=== PATIENT | male | born 1980 | race Two or more races ===

== ENCOUNTER 2019-11-28 07:16 | Emergency (ER) | payer SELFPAY ==
[~2019-11-28] VITALS: Ht 152.4 cm; Wt 107.5 kg
[2019-11-28] MEDS ORDERED: SODIUM CHLORIDE 0.9% 1,000 ML IV ONE (07:55)
[2019-11-28] MEDS ORDERED: MECLIZINE HCL 25 MG TAB PO ONE (08:00)
[2019-11-28 08:19] LABS: Basophils # (auto) 0.1 10 ^3/uL (0-0.2); Basophils % (auto) 0.7 % (0.0-2.0); Eosinophils # (auto) 0.2 10 ^3/uL (0-0.8); Eosinophils % (auto) 2.7 % (0.0-7.0); Hemoglobin 16.2 g/dL (13.5-17.5); Lymphocytes # (auto) 2.4 10 ^3/uL (0.4-5.4); Lymphocytes % (auto) 31.1 % (10.0-50.0); Mean Corpuscular Hemoglobin 30.3 pg (28.0-32.0); Mean Corpuscular Hgb Conc. 34.6 g/dL (32.0-36.0); Mean Corpuscular Volume 87.5 fL (80.0-100.0); Monocytes # (auto) 0.5 10 ^3/uL (0-1.3); Monocytes % (auto) 6.8 % (0.0-12.0); Neutrophils # (auto) 4.5 10 ^3/uL (1.6-8.6); Neutrophils % (auto) 58.7 % (37.0-80.0); Nucleated Red Blood Cells % 0.1 %; Platelet Count (auto) 166 10^3/uL (140-450); Red Blood Cells 5.37 10^6/uL (4.5-5.90); Red Cell Distribution Width 12.9 % (11.8-14.3); White Blood Cell 7.7 10^3/uL (4.4-10.8)
[2019-11-28 08:24] LABS: Urine WBC None Seen /hpf (0 - 3)
[2019-11-28 08:30] LABS: Urine Bacteria NONE SEEN /hpf (None Seen); Urine Blood TRACE /uL (Negative); Urine Specific Gravity 1.014 (1.001-1.035)
[2019-11-28 08:56] LABS: Albumin 3.7 g/dL (3.4-5.0); Anion Gap 9 (5-15); Blood Urea Nitrogen 13 mg/dL (7-18); Calcium 8.8 mg/dL (8.5-10.1); Carbon Dioxide 25 mmol/L (21-32); Chloride 107 mmol/L (98-107); Glucose 133 mg/dL (74-106); Magnesium 2.2 mg/dL (1.6-2.6); Potassium 3.8 mmol/L (3.5-5.1); Sodium 141 mmol/L (136-145)
[2019-11-28 09:05] LABS: Alanine Aminotransferase 62 U/L (16-61); Alkaline Phosphatase 71 U/L (45-117); Aspartate Aminotransferase 23 U/L (15-37); BUN/Creatinine Ratio 15.7; Bilirubin, Total 0.8 mg/dL (0.2-1.0); GFR African American 132 mL/min; GFR Non-African American 109 mL/min; Total Protein 7.3 g/dL (6.4-8.2)
[2019-11-28 11:00] VITALS: BP 157/101
== END 2019-11-28 11:32 | disposition home or self-care (01) ==
LOC: ER 07:16
DX: R07.89 Other chest pain (principal); J01.90 Acute sinusitis, unspecified; H81.10 Benign paroxysmal vertigo, unspecified ear; K21.9 Gastro-esophageal reflux disease without esophagitis
CPT/HCPCS: 36415; 71046; 80053; 81001; 83735; 84443; 84484; 85025; 93005; 96360; 96361; 99285; J7030; J8597

== ENCOUNTER 2019-12-29 06:52 | Emergency (ER) | payer MEDICAID ==
[~2019-12-29] VITALS: Ht 154.9 cm; Wt 107.5 kg
[2019-12-29 07:30] VITALS: BP 151/81
== END 2019-12-29 07:52 | disposition home or self-care (01) ==
LOC: ER 06:52
DX: R19.7 Diarrhea, unspecified (principal); H10.31 Unspecified acute conjunctivitis, right eye; K21.9 Gastro-esophageal reflux disease without esophagitis

== ENCOUNTER → 2020-03-20 | Emergency (ER) | payer MEDICAID ==
[~2020-03-20] VITALS: Ht 154.9 cm; Wt 117.9 kg
[~2020-03-20] MED LIST: AZITHROMYCIN 500MG/ 250ML 250 ML IV ONE; KETOROLAC TROMETH 30 MG/ML 1ML VIAL IV ONE; SODIUM CHLORIDE 0.9% 1,000 ML IV ONE; cefTRIAXone 1GM/50ML D5W 50 ML IV ONE
[2020-03-20 08:13] LABS: Basophils # (auto) 0 10 ^3/uL (0-0.2); Basophils % (auto) 0.5 % (0.0-2.0); Eosinophils # (auto) 0.2 10 ^3/uL (0-0.8); Eosinophils % (auto) 2.8 % (0.0-7.0); Hematocrit 46.3 % (41.0-53.0); Lymphocytes # (auto) 3.2 10 ^3/uL (0.4-5.4); Lymphocytes % (auto) 36.3 % (10.0-50.0); Mean Corpuscular Hemoglobin 30.3 pg (28.0-32.0); Mean Corpuscular Hgb Conc. 34.5 g/dL (32.0-36.0); Mean Corpuscular Volume 87.8 fL (80.0-100.0); Monocytes # (auto) 0.6 10 ^3/uL (0-1.3); Monocytes % (auto) 6.4 % (0.0-12.0); Neutrophils # (auto) 4.7 10 ^3/uL (1.6-8.6); Nucleated Red Blood Cells % 0.1 %; Platelet Count (auto) 166 10^3/uL (140-450); Red Blood Cells 5.28 10^6/uL (4.5-5.90); Red Cell Distribution Width 12.9 % (11.8-14.3); White Blood Cell 8.7 10^3/uL (4.4-10.8)
[2020-03-20 08:39] LABS: Albumin 3.7 g/dL (3.4-5.0); Anion Gap 5 (5-15); Blood Urea Nitrogen 17 mg/dL (7-18); Calcium 8.6 mg/dL (8.5-10.1); Carbon Dioxide 26 mmol/L (21-32); Chloride 109 mmol/L (98-107); Glucose 120 mg/dL (74-106); Potassium 4.2 mmol/L (3.5-5.1); Sodium 140 mmol/L (136-145)
[2020-03-20 08:44] LABS: Alanine Aminotransferase 72 U/L (16-61); Alkaline Phosphatase 73 U/L (45-117); Aspartate Aminotransferase 30 U/L (15-37); BUN/Creatinine Ratio 18.7; Bilirubin, Total 1.2 mg/dL (0.2-1.0); GFR African American 119 mL/min; GFR Non-African American 98 mL/min; Total Protein 7.2 g/dL (6.4-8.2)
[2020-03-20 10:35] LABS: Amphetamine Screen, Urine NEGATIVE (NEGATIVE); Barbiturate Scree,Urine NEGATIVE (NEGATIVE); Benzodiazephine Screen, Urine NEGATIVE (NEGATIVE); Cannabinoid Screen, Urine NEGATIVE (NEGATIVE); Cocaine Screen, Urine NEGATIVE (NEGATIVE); Opiate Scree,Urine NEGATIVE (NEGATIVE); Phencyclidine Screen, Urine NEGATIVE (NEGATIVE)
[2020-03-20 10:42] LABS: Urine Bacteria NONE SEEN /hpf (None Seen); Urine Blood Negative /uL (Negative); Urine Specific Gravity 1.019 (1.001-1.035); Urine WBC 2 /hpf (0 - 3)
[2020-03-20 13:00] VITALS: BP 132/78
== END | disposition home or self-care (01) ==
LOC: EDUNIT# 06:21 → ER 06:21
DX: J18.9 Pneumonia, unspecified organism (principal); R10.12 Left upper quadrant pain; E86.0 Dehydration; K21.9 Gastro-esophageal reflux disease without esophagitis; Z87.442 Personal history of urinary calculi; Z20.828 Contact with and (suspected) exposure to other viral communicable diseases
CPT/HCPCS: 36415; 71046; 74176; 80053; 80307; 81001; 84484; 85025; 93005; 96365; 96366; 96368; 96375; 99285; J0456; J0696; J1885; J7030; U0003

== ENCOUNTER 2020-07-17 12:08 | Emergency (ER) | payer MEDICAID ==
[~2020-07-17] VITALS: Ht 154.9 cm; Wt 113.4 kg
[2020-07-17] MEDS ORDERED: ONDANSETRON ODT 4 MG TAB PO ONE ×2 (13:19→13:45)
[2020-07-17 13:49] VITALS: BP 141/92
== END 2020-07-17 13:52 | disposition home or self-care (01) ==
LOC: ER 12:08
DX: J20.9 Acute bronchitis, unspecified (principal); K21.9 Gastro-esophageal reflux disease without esophagitis; Z20.828 Contact with and (suspected) exposure to other viral communicable diseases
CPT/HCPCS: 36415; 71045; 87426; 99284; C9803; Q0162; U0003